=== PATIENT | female | born 1965 | race African-American/Black ===

== ENCOUNTER 2017-04-16 17:42 | Emergency (ER) | payer OTHER ==
[2017-04-16] MEDS ORDERED: Ciprofloxacin 500 MG TAB ONE (18:15)
[2017-04-16] MEDS ORDERED: HYDROcodone/Acetaminophen 10/325 mg Tablet ONE (18:15)
[2017-04-16] MEDS ORDERED: Ibuprofen 800 MG TAB ONE (18:15)
== END 2017-04-16 18:15 | disposition home or self-care (01) ==
LOC: MADERS 17:42
DX: K02.9 Dental caries, unspecified (principal); I10 Essential (primary) hypertension; F17.210 Nicotine dependence, cigarettes, uncomplicated; Z79.899 Other long term (current) drug therapy
CPT/HCPCS: 99282